=== PATIENT | female | born 1980 | race Caucasian/White ===

== ENCOUNTER 2017-11-03 20:17 | Inpatient (IN) | payer MEDICAID ==
[~2017-11-03] VITALS: Ht 165.1 cm; Wt 70.5 kg
[2017-11-03 21:29] LABS: BASOPHIL % 0.2 % (0-2); PLATELET COUNT 215 x10^3mcL (130-400); RED CELL DISTRIBUTION WIDTH 14.1 % (11.5-14.5)
[2017-11-03 21:30] LABS: microscopic required? YES; urine erythrocyte 1+ (NEGATIVE)
[2017-11-03 21:35] LABS: CALCIUM 8.6 mg/dL (8.5-10.1); CARBON DIOXIDE 28.7 mmol/L (21-32); CHLORIDE SERUM 109 mmol/L (98-107); CREATININE SERUM 0.8 mg/dL (0.6-1.0); GFR1 > 60 mL/min; GLUCOSE SERUM 121 mg/dL (74-106); POTASSIUM SERUM 3.6 mmol/L (3.5-5.1); SODIUM SERUM 147 mmol/L (136-145)
[2017-11-03 21:40] LABS: ALBUMIN 3.5 g/dL (3.4-5.0); ALKALINE PHOSPHATASE 121 U/L (46-116); ALT/SGPT 67 U/L (14-59); AMYLASE 47 U/L (25-115); AST/SGOT 122 U/L (15-37); BILIRUBIN TOTAL 0.37 mg/dL (0.20-1.00); LIPASE 128 IU/L (73-393); TOTAL PROTEIN, SERUM 6.9 g/dL (6.4-8.2)
[2017-11-03 23:22] VITALS: BP 114/71
[2017-11-03 23:48] LABS: T3 TOTAL 1.29 ng/mL
[2017-11-03 23:51] LABS: FREE T4 0.99 ng/dL (0.76-1.46); FREE THYROXINE INDEX 3.1 ug/dL (1.4-4.5); T4(THYROXINE) 9.5 ug/dL (4.7-13.3)
[2017-11-03 23:59] LABS: CHOLESTEROL/HDL RATIO 3.1; PHOSPHOROUS 2.4 mg/dL (2.5-4.9)
[2017-11-04 05:16] VITALS: BP 91/50
[2017-11-04 06:03] LABS: CALCIUM 8.4 mg/dL (8.5-10.1); CARBON DIOXIDE 27.2 mmol/L (21-32); CHLORIDE SERUM 111 mmol/L (98-107); CREATININE SERUM 0.7 mg/dL (0.6-1.0); GFR1 > 60 mL/min; GLUCOSE SERUM 110 mg/dL (74-106); PHOSPHOROUS 3.4 mg/dL (2.5-4.9); POTASSIUM SERUM 4.6 mmol/L (3.5-5.1); SODIUM SERUM 146 mmol/L (136-145)
[2017-11-04 06:11] LABS: BASOPHIL % 0.5 % (0-2); PLATELET COUNT 194 x10^3mcL (130-400); RED CELL DISTRIBUTION WIDTH 14.1 % (11.5-14.5)
[2017-11-04 09:32] LABS: AMPHETAMINE QUAL UR NONE DETECTED (NEG <=1000)
[2017-11-04 16:57] VITALS: BP 91/58
[2017-11-04 21:07] VITALS: BP 90/48
[2017-11-05 05:55] VITALS: BP 96/44
[2017-11-05 06:13] LABS: BASOPHIL % 0.3 % (0-2); PLATELET COUNT 180 x10^3mcL (130-400)
[2017-11-05 06:17] LABS: CALCIUM 8.5 mg/dL (8.5-10.1); CARBON DIOXIDE 23.9 mmol/L (21-32); CHLORIDE SERUM 110 mmol/L (98-107); CREATININE SERUM 0.7 mg/dL (0.6-1.0); GFR1 > 60 mL/min; GLUCOSE SERUM 103 mg/dL (74-106); MAGNESIUM 1.9 mg/dL (1.8-2.4); PHOSPHOROUS 2.7 mg/dL (2.5-4.9); POTASSIUM SERUM 3.8 mmol/L (3.5-5.1); SODIUM SERUM 144 mmol/L (136-145)
[2017-11-05 07:11] LABS: RED CELL DISTRIBUTION WIDTH 14.6 % (11.5-14.5)
[2017-11-05 09:40] VITALS: BP 97/48
[2017-11-05] MEDS ORDERED: FLA500 PO (11:38)
[2017-11-05] MEDS ORDERED: MOT800 PO (11:39)
[2017-11-05 12:03] VITALS: BP 97/48
== END 2017-11-05 15:35 | disposition home or self-care (01) | DRG 263 ==
LOC: ED 20:17 → DU 22:31 → MU 22:31 → DU 23:25 → MU 11-04 08:49
PROVIDERS: Emergency Medicine; Family Medicine; Surgery
PROC: 0FT44ZZ Resection of Gallbladder, Percutaneous Endoscopic Approach (ICD-10-PCS; principal; 2017-11-04 08:30)
DX: K80.70 Calculus of gallbladder and bile duct without cholecystitis without obstruction (principal); E87.0 Hyperosmolality and hypernatremia; E87.8 Other disorders of electrolyte and fluid balance, not elsewhere classified; E83.39 Other disorders of phosphorus metabolism; E83.51 Hypocalcemia; D64.9 Anemia, unspecified; R31.9 Hematuria, unspecified; N76.0 Acute vaginitis; Z53.29 Procedure and treatment not carried out because of patient's decision for other reasons; Z88.5 Allergy status to narcotic agent
CPT/HCPCS: 83880; 84439; 94150; J0330; J1885; J2250; J2405; J2543; J2704; J2710; J3010; J3490; J7030; J7120; Q0092